=== PATIENT | female | born 1995 | race Caucasian/White ===

== ENCOUNTER 2017-04-18 13:25 | Emergency (ER) | payer OTHER ==
[~2017-04-18] VITALS: Ht 162.6 cm; Wt 80.7 kg
[2017-04-18 14:47] VITALS: BP 122/68
== END 2017-04-18 14:48 | disposition home or self-care (01) ==
LOC: EME 13:25
PROC: 0HQFXZZ Repair Right Hand Skin, External Approach (ICD-10-PCS; principal; 2017-04-18)
DX: S61.011A Laceration without foreign body of right thumb without damage to nail, initial encounter (principal); W45.8XXA Other foreign body or object entering through skin, initial encounter; Y93.G1 Activity, food preparation and clean up; F17.200 Nicotine dependence, unspecified, uncomplicated
CPT/HCPCS: 99281; 99284

== ENCOUNTER 2018-02-03 20:10 | Emergency (ER) | payer OTHER ==
[~2018-02-03] VITALS: Ht 162.6 cm; Wt 83.7 kg
[2018-02-03 20:58] LABS: HEMATOCRIT 36.8 % (36.0-46.0); HEMOGLOBIN 12.7 G/DL (11.9-15.5); MCH 26.8 PG (29.0-34.0); MCHC 34.5 G/DL (30.0-36.0); MCV 77.8 FL (83-99); PLATELET COUNT 374 K/uL (156-360); RBC DIS.WIDTH-CV 13.5 % (11.8-14.6); RBC DIS.WIDTH-SD 38.5 % (39-53); RED BLOOD COUNT 4.73 M/uL (3.80-5.20); WHITE BLOOD COUNT 5.8 K/uL (4.1-10.2)
[2018-02-03 21:06] LABS: ALBUMIN 4.1 g/dL (3.2-4.8)
[2018-02-03 21:07] LABS: CHLORIDE 108 mEq/L (99-109); POTASSIUM 3.7 mEq/L (3.7-5.4); SODIUM 141 mEq/L (136-147)
[2018-02-03 21:09] LABS: GLUCOSE 86 mg/dL (70-99); TOTAL PROTEIN 7.2 g/dL (6.4-8.3)
[2018-02-03 21:11] LABS: TOTAL BILIRUBIN 0.4 mg/dL (0.0-1.0)
[2018-02-03 21:12] LABS: ALKALINE PHOSPHATASE 65 IU/L (3-129)
[2018-02-03 21:13] LABS: CREATININE 0.9 mg/dL (0.6-1.3); GFR ESTIMATE (CALCULATED) > 59 mL/min/
[2018-02-03 21:14] LABS: AST (GOT) 19 IU/L (2-34); UREA NITROGEN (BUN) 8 mg/dL (9-23)
[2018-02-03 21:16] LABS: ALT (GPT) 24 IU/L (3-49)
[2018-02-03 21:21] LABS: QUANTITATIVE HCG < 4.0 MIU/ML
[2018-02-03] MEDS ORDERED: PEPCID20 MG PO (23:29)
[2018-02-03 23:35] LABS: LIPASE 6 U/L (1.0-51.0)
[2018-02-03 23:59] VITALS: BP 137/82
== END 2018-02-04 | disposition home or self-care (01) ==
LOC: EME 20:10
PROVIDERS: Physician Assistant
DX: J06.9 Acute upper respiratory infection, unspecified (principal); K92.0 Hematemesis; F17.200 Nicotine dependence, unspecified, uncomplicated; Z88.0 Allergy status to penicillin
CPT/HCPCS: 71046; 80053; 83690; 84702; 85027; 86850; 86900; 86901; 99281; 99285; C9113